=== PATIENT | male | born 1955 ===

== ENCOUNTER 2019-09-28 12:59 | Observation (INO) ==
[2019-09-28] MEDS ORDERED: THIAMINE INJ 100 MG, FOLIC ACID INJ 1 MG, MAGNESIUM SULF INJ 2 GM, MULTIVITAMIN INJ 10 ... IV STA (13:26)
[2019-09-28 13:56] LABS: Basophils % 1.1 % (0.0-0.8); Eosinophils % 0.3 % (0.00-10.9); Hematocrit 40.3 VOL% (42.0-52.0); Immature Granulocytes % 0.9 %; Immature Granulocytes Absolute 0.03 #; Lymphocytes % 28.1 % (21.2-54.2); Mean Corpuscular HGB Conc 34.7 GM/DL (32-36); Mean Corpuscular Volume 97.3 FL (87-102); Mean Platelet Volume 9.4 FL (9.6-12.0); Monocytes % 13.6 % (1.7-12.7); Platelet Count 89 T/CUMM (130-400); Red Blood Count 4.14 MC/CUMM (3.8-5.5); Red Cell Distribution Width 14.4 % (9.3-17.3); White Blood Count 3.5 T/CUMM (4-12)
[2019-09-28 14:04] LABS: INR 1.2; PT Patient Result 12.8 SECS (9.8-11.9)
[2019-09-28 14:23] LABS: Bilirubin,Total 1.5 MG/DL (0.2-1.0); Calcium 7.9 MG/DL (8.5-10.1); Osmolality,Calculated 263.4 MOS/KG (273-304); Total Protein 8.3 G/DL (6.4-8.3)
[2019-09-28 14:28] LABS: Apearance,Urine CLEAR (Clear); Bacteria,Urine Occasional /HPF (Few); Bilirubin,Urine Negative (Negative); Blood, Urine Small mg/dL (Negative); Glucose,Urine (UA) Negative (Negative); Hyaline Casts,Urine 1 /LPF (0-3); Ketones,Urine Negative (Negative); Mucus,Urine Occasional /LPF (Occasional); Nitrite,Urine Negative (Negative); Protein,Urine Negative; Squamous Epithelial Cell,Urine Occasional /HPF (0-10); Urine Color Yellow (Yellow); Urine Specific Gravity 1.009 (1.001-1.035); Urine Urobilinogen < 2.0 EU/DL (0.2-1.0); WBC,Urine <1 /HPF (0-6)
[2019-09-28 14:39] LABS: Barbiturates Screen,Urine Negative (Negative); Benzodiazepines Screen,Urine Negative (Negative); Cannabinoid Screen,Urine Negative (Negative); Opiate Screen,Urine Negative (Negative); Phencyclidine Screen,Urine Negative (Negative)
[2019-09-28 14:55] LABS: Platelet Estimate Decreased
[2019-09-28] MEDS ORDERED: DEXTROSE 50% 25 GM/50 ML VIAL IV PRN (15:57)
[2019-09-28] MEDS ORDERED: GLUCAGON 1 MG VIAL IM PRN (15:57)
[2019-09-28] MEDS ORDERED: ONDANSETRON 4 MG/2 ML VIAL IV PRN (15:57)
[2019-09-28] MEDS ORDERED: MAGNESIUM SULF RIDER 2 GM in PREMIX 1 EACH IV PRN (16:00)
[2019-09-28] MEDS ORDERED: LORazepam 2 MG/1 ML VIAL IV PRN (16:00)
[2019-09-28] MEDS ORDERED: MAGNESIUM SULF RIDER 4 GM in PREMIX 1 EACH IV PRN (16:00)
[2019-09-28] MEDS ORDERED: hydrALAZINE 20 MG/1 ML VIAL IV PRN (16:11)
[2019-09-28] MEDS ORDERED: THIAMINE INJ 100 MG, FOLIC ACID INJ 1 MG, MULTIVITAMIN INJ 10 ML in DEXTROSE 5% NACL 0.... IV SCH (18:00)
[2019-09-29] MEDS: DEXTROSE 5% NACL 0.9% 1,000 ML IV SCH ×2 (04:21→04:23)
[2019-09-29 06:27] LABS: Basophils # 0.1 10*3/uL (0.0-0.2); Basophils % 1.6 % (0.0-0.8); Hematocrit 39.7 VOL% (42.0-52.0); Hemoglobin 13.6 GM/DL (14.0-18.0); Immature Granulocytes % 0.3 %; Immature Granulocytes Absolute 0.01 #; Lymphocytes # 0.8 10*3/uL (1.4-4.0); Lymphocytes % 26.3 % (21.2-54.2); Mean Corpuscular HGB Conc 34.3 GM/DL (32-36); Mean Corpuscular Volume 98.5 FL (87-102); Mean Platelet Volume 10.3 FL (9.6-12.0); Monocytes % 13.7 % (1.7-12.7); Neutrophils % 57.1 % (38.7-73.9); Platelet Count 82 T/CUMM (130-400); Red Blood Count 4.03 MC/CUMM (3.8-5.5); Red Cell Distribution Width 14.6 % (9.3-17.3); White Blood Count 3.2 T/CUMM (4-12)
[2019-09-29 06:50] LABS: Albumin 2.7 G/DL (3.4-5.0); Bilirubin,Total 1.7 MG/DL (0.2-1.0); Calcium 7.3 MG/DL (8.5-10.1); Osmolality,Calculated 272.7 MOS/KG (273-304); Total Protein 7.9 G/DL (6.4-8.3)
[2019-09-29 06:50] LABS: Folate > 24.0 NG/ML (5.4-24.0); Vitamin B12 995 PG/ML (211-911)
[2019-09-29 08:34] LABS: Anisocytosis 1+; Platelet Estimate Decreased
[2019-09-29 08:35] LABS: Macrocytosis 1+; Target Cells Few
[2019-09-29] MEDS ORDERED: amLODIPine 5 MG TABLET PO SCH (09:00)
[2019-09-29] MEDS ORDERED: PANTOPRAZOLE 40 MG TABLET PO SCH (09:00)
[2019-09-29] MEDS: POTASSIUM CHLORIDE 20 MEQ TABLET PO PRN ×2 (10:13→12:18)
[2019-09-29 11:53] VITALS: BP 156/86
== END 2019-09-29 13:50 | disposition home or self-care (01) ==
LOC: N.ED 12:59 → N.EDINP 12:59 → N.3E 17:09
PROVIDERS: ADMIT Internal Medicine; ATTEND Internal Medicine